=== PATIENT | female | born 1955 | race Caucasian/White ===

== ENCOUNTER → 2017-02-10 | Outpatient (CLI) | payer BC ==
[~2017-02-10] MED LIST: ANAS1TAB19 PO; CALCTAB7 PO; CHOL100010 PO; LISI-729 PO; MELA3TAB PO; MULT-513 PO
== END | disposition home or self-care (01) ==
LOC: C.PAPS 12:01
PROVIDERS: ATTEND Obstetrics & Gynecology
DX: Z01.419 Encounter for gynecological examination (general) (routine) without abnormal findings (principal)

== ENCOUNTER → 2017-07-01 | Outpatient (CLI) | payer BC ==
[2017-07-01 12:09] LABS: BASO % 0.4 %; BASO ABS # 0.03 K/uL (0-0.2); EOS % 0.7 %; EOS ABS # 0.05 K/uL (0-0.5); HEMATOCRIT 43.8 % (37-47); HEMOGLOBIN 15.2 g/dL (12.0-16.0); IG# 0.01 K/uL (0.00-0.02); LYMPH % 17.4 %; LYMPH ABS # 1.22 K/uL (1.2-3.4); MEAN CELL VOLUME 95.6 fL (80-100); MEAN CORPUSCULAR HEMOGLOBIN 33.2 pg (25-34); MEAN CORPUSCULAR HGB CONC 34.7 g/dl (32-36); MEAN PLATELET VOLUME 9.5 fL (7.4-10.4); MONO % 7.5 %; MONO ABS # 0.53 K/uL (0.11-0.59); NEUT % 73.9 %; NEUT ABS # 5.19 K/uL (1.4-6.5); PLATELET COUNT 262 K/uL (130-400); RED CELL DISTRIBUTION WIDTH SD 45.5 fL (36.4-46.3); WHITE BLOOD COUNT 7.03 K/uL (4.8-10.8)
[2017-07-01 12:34] LABS: BLOOD UREA NITROGEN 17 mg/dl (7-18); CALCIUM 9.1 mg/dl (8.5-10.1); CARBON DIOXIDE 31 mmol/L (21-32); CHOLESTEROL 203 mg/dl (0-200); CREATININE 0.56 mg/dl (0.60-1.20); GLUCOSE 88 mg/dl (70-99); SODIUM 138 mmol/L (136-145)
[2017-07-01 12:44] LABS: LDL CHOLESTEROL CALCULATED 113 mg/dl
== END | disposition home or self-care (01) ==
LOC: C.LAB 10:11
PROVIDERS: ATTEND Internal Medicine
DX: M85.80 Other specified disorders of bone density and structure, unspecified site (principal); I10 Essential (primary) hypertension; C50.919 Malignant neoplasm of unspecified site of unspecified female breast

== ENCOUNTER → 2017-08-30 | Day surgery (SDC) | payer BC ==
[2017-08-14 11:35] VITALS: Ht 177.8 cm; Wt 65.0 kg
[~2017-08-30] VITALS: Ht 177.8 cm; Wt 65.0 kg
[~2017-08-30] MED LIST changes: -ANAS1TAB19 PO; +CALC1CHW71 PO; -CALCTAB7 PO; -CHOL100010 PO; +LIDOCAINE HCL 2% 2 ML VIAL (20MG/ML) ONE; -MELA3TAB PO; +MULT-506 PO; -MULT-513 PO; +PROPOFOL IV EMULSION 10 MG/ML 20 ML VIAL IV ONE; +SODIUM CHLORIDE 0.9% 500ML 500 ML IV ONE
--- NOTE | 2017-08-30 11:25 | Endo History and Physical ---
History & Physical Date of Service: Aug 30, 2017. Chief Complaint: screening Referring Physician: Dr. Marion History of Present Illness 62 yo CF who presents for screening colonoscopy. Past Surgical History Hx Cardiac Surgery: No Hx Internal Defibrillator: No Hx Pacemaker: No Hx Abdominal Surgery: Yes (RT OVARIAN CYST REMOVAL, EXPLOR. LAP (INFERTILITY)) Hx of Implantable Prosthesis: No Hx Post-Op Nausea and Vomiting: No Hx Cancer Surgery: Yes (RT MASTECTOMY/RECONSTRUCTION) Hx Thoracic Surgery: No Hx Orthopedic: Yes (LUMBAR MICRODISCECTOMY, LEFT SHOULDER ARTHROSCOPY) Hx Urinary Tract Surgery: No Family History None Social History Smoking Status: Never Smoker Hx Substance Use: No Hx Alcohol Use: Yes (1 GLASS OF WINE/DAILY) Allergies Coded Allergies: Iodinated Diagnostic Agents (Verified Allergy, Unknown, HIVES, 08/30/17) Sulfamethoxazole w/Trimethoprim (Verified Allergy, Unknown, RASH, 08/30/17) Current Medications Reported Home Medications Medications Dose Route/Sig Max Daily Dose Days Date Category Calcium Chews (Calcium Carbonate-Cholecalcife) 1 Chw Chw 1 Tab PO BID 08/14/17 Reported Multivitamin (Multivitamins) Tab 1 Tab PO QAM 08/14/17 Reported Zestril (Lisinopril) 5 Mg Tab 5 Mg PO QAM 08/14/17 Reported Vital Signs Weight (Kilograms): 65 Height (Feet): 5 Height (Inches): 10 Date Time Temp Pulse Resp B/P (MAP) Pulse Ox O2 Delivery O2 Flow Rate FiO2 08/30/17 10:42 36.8 68 18 173/85 (114) 99 Room Air Physical Exam General Appearance: WD/WN, no apparent distress Respiratory/Chest: Auscultation: breath sounds normal Cardiovascular: Heart Auscultation: RRR Abdomen: Bowel Sounds: normal Inspection & Palpation: soft, non-distended, no tenderness, guarding & rebound Assessment and Plan Assessment: 62 yo CF who presents for screening colonoscopy. Plan: Proceed with colonoscopy.
--- NOTE | 2017-08-30 12:00 | GI REPORT ---
Procedure Date: 08/30/2017 11:14 AM Procedure: Colonoscopy Indications: Screening for colorectal malignant neoplasm Medicines: Monitored Anesthesia Care Complications: No immediate complications. Estimated Blood Loss: Estimated blood loss: none. Procedure: Pre-Anesthesia Assessment: - Prior to the procedure, a History and Physical was performed, and patient medications and allergies were reviewed. The patient's tolerance of previous anesthesia was also reviewed. The risks and benefits of the procedure and the sedation options and risks were discussed with the patient. All questions were answered, and informed consent was obtained. Prior Anticoagulants: The patient has taken no previous anticoagulant or antiplatelet agents. ASA Grade Assessment: II - A patient with mild systemic disease. After reviewing the risks and benefits, the patient was deemed in satisfactory condition to undergo the procedure. After I obtained informed consent, the scope was passed under direct vision. Throughout the procedure, the patient's blood pressure, pulse, and oxygen saturations were monitored continuously. The scope was introduced through the anus and advanced to the terminal ileum. The colonoscopy was performed without difficulty. The patient tolerated the procedure well. The quality of the bowel preparation was good. The terminal ileum, ileocecal valve, appendiceal orifice, and rectum were photographed. Findings: The perianal and digital rectal examinations were normal. Non-bleeding internal hemorrhoids were found during retroflexion. The hemorrhoids were small. Impression: - Non-bleeding internal hemorrhoids. - No specimens collected. Recommendation: - Resume previous diet. - Continue present medications. - Repeat colonoscopy in 10 years for surveillance. - Return to primary care physician as previously scheduled. Frank Farias DO 08/30/2017 11:59:38 AM This report has been signed electronically. Note Initiated On: 08/30/2017 11:14 AM I attest to the content of the Intraoperative Record and orders documented therein, exceptions below
--- NOTE | 2017-08-30 12:01 | Discharge Instructions ---
Endoscopy Patient Instructions Date / Procedure(s) Performed Aug 30, 2017. Colonoscopy Allergy Information Coded Allergies: Iodinated Diagnostic Agents (Verified Allergy, Unknown, HIVES, 08/30/17) Sulfamethoxazole w/Trimethoprim (Verified Allergy, Unknown, RASH, 08/30/17) Discharge Date / Findings Aug 30, 2017. Internal hemorrhoids Medication Instructions OK to resume all medications today as prescribed Reported Home Medications Medications Dose Route/Sig Max Daily Dose Days Date Category Calcium Chews (Calcium Carbonate-Cholecalcife) 1 Chw Chw 1 Tab PO BID 08/14/17 Reported Multivitamin (Multivitamins) Tab 1 Tab PO QAM 08/14/17 Reported Zestril (Lisinopril) 5 Mg Tab 5 Mg PO QAM 08/14/17 Reported Provider Instructions Activity Restrictions - No exercising or heavy lifting for 24 hours. - Do not drink alcohol the day of the procedure. - Do not drive a car or operate machinery until the day after the procedure. - Do not make any important decisions or sign important papers in 24 hours after the procedure. Following Day: - Return to full activity which may include returning to work/school. Diet Start your diet with liquids and light foods (jello, soup, juice, toast). Then eat your usual diet if not nauseated. Treatment For Common After Affects For mild abdominal pain, bloating, or excessive gas: - Rest - Eat lightly - Lie on right side Follow-Up Information Follow-up with Dr. Marion as scheduled Anesthesia Information What You Should Know You have had a procedure that required some medicine to reduce anxiety and discomfort. This treatment is called moderate sedation. After receiving the treatment, you may be sleepy, but you will be able to breathe on your own. The effects of the treatment may last for several hours. Follow these instructions along with Activity/Diet recommendations noted above: * Do NOT do anything where dizziness or clumsiness would be dangerous. * Rest quietly at home today, then you can be up and about tomorrow. * Have a responsible person stay with you the rest of today. * You may have had an I.V. today. If so, you may take the dressing off later today. Recommendations Call your doctor if: * Trouble breathing * Continuous vomiting for more than 24 hours * Temperature above 101 degrees * Severe abdominal pain or bloating * Pain not relieved by pain medicine ordered * There is increased drainage or redness from any incision * A large amount of rectal bleeding greater than 2-3 tablespoons. (If you had a polyp/s removed or have hemorrhoids, a small amount of blood - from the rectum is to be expected.) * You have any unanswered questions or concerns. IN THE EVENT OF A SERIOUS EMERGENCY, GO TO THE NEAREST EMERGENCY ROOM Your discharge instructions were prepared by provider Frank Farias. Patient Instructions Signature Page Fannie Aguilar Patient (or Guardian) Signature/Date: I have read and understand the instructions given to me by my caregivers. Caregiver/RN/Doctor Signature/Date: The above-named patient and/or guardian has received patient instructions on this date. + Original Patient Signature Page (only) stays with chart. Please make copy for patient.
--- NOTE | 2017-08-30 12:27 | Anesthesiology Progress Note ---
Anesthesia Post Op Note Date & Time Aug 30, 2017 at 12:27 Vital Signs Pain Intensity: 0 Vital Signs Past 12 Hours Date Time Temp Pulse Resp B/P (MAP) Pulse Ox O2 Delivery O2 Flow Rate FiO2 08/30/17 12:20 69 20 140/71 (94) 100 Room Air 08/30/17 12:05 37.0 69 16 113/59 (77) 98 Room Air 08/30/17 10:42 36.8 68 18 173/85 (114) 99 Room Air Notes Mental Status: alert / awake / arousable, participated in evaluation Pt Amnestic to Procedure: Yes Nausea / Vomiting: adequately controlled Pain: adequately controlled Airway Patency, RR, SpO2: stable & adequate BP & HR: stable & adequate Hydration State: stable & adequate Anesthetic Complications: no major complications apparent
[2017-08-30 12:35] VITALS: BP 137/84; PULSE 67; O2SAT 99
== END | disposition home or self-care (01) ==
LOC: C.GI 10:17
PROVIDERS: ATTEND Internal Medicine
DX: Z12.11 Encounter for screening for malignant neoplasm of colon (principal); K64.9 Unspecified hemorrhoids; I10 Essential (primary) hypertension; Z88.2 Allergy status to sulfonamides; Z88.8 Allergy status to other drugs, medicaments and biological substances; Z98.890 Other specified postprocedural states; Z90.11 Acquired absence of right breast and nipple; Z79.899 Other long term (current) drug therapy; Z85.3 Personal history of malignant neoplasm of breast

== ENCOUNTER 2019-10-09 05:45 | Inpatient (IN) ==
--- NOTE | 2019-10-02 11:28 | History & Physical Report ---
Date of Service October 02, 2019 Assessment & Plan (1) Cervical stenosis of spinal canal: At this time the patient's had a steady decline in status and noting weakness and pain. Subsequently recommending urgent anterior cervical discectomy and fusion C5-6 and C6-7 in hopes of relieving her pain and halting the progression of strength deficits. Hopefully this will avoid permanent neurologic sequelae. Risk benefits pros cons and alternatives were outlined in detail. Present on Admission?: Yes History of Present Illness Chief Complaint: Neck with bilateral arm pain and weakness. Primary Care Provider: Jesse Marion MD This is a 64-year-old female that presents with progressive neck pain headaches and arm pain with worsening weakness involving the left upper extremity. He is failed extensive course of nonoperative care. She notes deficits with hand strength and triceps particular on the left. Allergies Allergy/AdvReac Type Severity Reaction Status Date / Time strawberry Allergy Severe rash and Verified 07/30/19 08:35 sob Iodinated Contrast Media Allergy Intermediate HIVES Verified 07/30/19 08:35 sulfamethoxazole Allergy Mild RASH Verified 07/30/19 08:35 trimethoprim Allergy Mild RASH Verified 07/30/19 08:35 Bactrim Allergy Unknown RASH Verified 08/30/17 10:35 Home Medications Home Medications Medication Instructions Recorded Confirmed Type multivitamin 1 tab PO QAM 07/13/18 07/30/19 History hydrochlorothiazide 25 mg tablet 25 mg PO DAILY PRN #90 tab 12/19/18 07/30/19 Rx calcium carbonate 500 mg(1,250 1 tab PO BID tab 12/31/18 07/30/19 History mg)-vitamin D3 400 unit chewable tablet cholecalciferol (vitamin D3) 25 1,000 units PO DAILY cap 12/31/18 07/30/19 History mcg (1,000 unit) capsule fluticasone propionate 50 1 - 2 sprays INTRANASAL DAILY PRN 12/31/18 07/30/19 History mcg/actuation nasal #3 gm spray,suspension melatonin 3 mg capsule 3 mg PO HS PRN 01/03/19 07/30/19 History metoprolol succinate 50 mg 25 mg PO QAM tab 06/20/19 07/30/19 History tablet,extended release 24 hr tizanidine 2 mg capsule 2 mg PO QPM PRN cap 06/20/19 07/30/19 History rivaroxaban 20 mg tablet 20 mg PO DAILY #90 tab 09/15/19 Rx lisinopril 10 mg tablet 20 mg PO QAM #180 tab 09/23/19 Rx Past Med/Surg History Medical History (Updated 10/02/19 @ 11:28 by Rcihard Alicea, DO) Atrial fibrillation dx'd November 2018. converted to NSR on her own, follows with Dr Slade. Xarelto & metoprolol daily Dog bite (Inactive) History of right breast cancer (~2005) s/p mastectomy + chemo- no current issues Hypertension Kidney stones no surgery needed- no current issues Surgical History History of arthroscopy of shoulder left History of back surgery History of cataract surgery bilateral History of colonoscopy History of exploratory laparotomy History of ovarian cystectomy History of reconstruction of right breast History of right breast biopsy History of right mastectomy with sentinel node biopsy S/P epidural steroid injection Social History Preferred Language: [place]ian Communication Ability: Effective Scallop Cutter Required: No Beliefs That Will Affect Care: None Current Living Situation: Spouse Feels Safe at Home: Yes Smoking Status: Never smoker Second Hand Exposure: No ; Hx Alcohol Use: Yes Alcohol type: wine Hx Substance Use: No Physical Exam Physical Exam: Patient is alert and oriented On exam she is in obvious distress. She is significant Spurling signs bilaterally. She has deficits for 5 to the left tricep compared to the right. She has weakness to left grasp as well. Sensory appears to be symmetric and intact. Deep tendon reflexes are diminished. Heart is regular rate and rhythm Lungs clear to auscultation Results & Data Diagnostic Findings MRI of the cervical spine demonstrates evidence of cervical lordosis with marked degenerative change at the C5-6 and C6-7 levels. I do not appreciate intrinsic cord change. There is significant neural foraminal disease most impressive at C5-C6. X-ray views confirm disc osteophyte complex central canal stenosis C5-C6 with severe bilateral neuroforaminal disease. Lesser degree C6-C7.
--- NOTE | 2019-10-07 15:59 | Anesthesiology Consultation ---
Date of Service October 07, 2019 Assessment & Plan (1) Encounter for pre-operative examination: Pre-op labs out of date (patient was r/s due to COVID19). CBC, BMP, PT/INR/PTT AM DOS. COVID Status: As of 10/02 nurse assessment, patient denies travel outside of [facility], known exposure/sick contacts, symptoms, or testing for coronavirus. ORDERS ALREADY DONE AND IN CHART Chart Review Chart Review: Acceptable Risk for Surgery (pending discussion with MD) and Patient NOT seen in Pre Admission Testing History Surgery Operation Date: 10/09/19 07:30 Proposed Procedures p C5-C7 Anterior Cervical Discectomy Fusion, Spinal Cord Monitoring - Richard Alicea, Height/Weight Height: 5 ft 10 in Weight: 65.771 kg Allergies Allergy/AdvReac Type Severity Reaction Status Date / Time strawberry Allergy Severe rash and Verified 10/03/19 13:06 sob Iodinated Contrast Media Allergy Intermediate HIVES Verified 10/03/19 13:06 sulfamethoxazole Allergy Mild RASH Verified 10/03/19 13:06 trimethoprim Allergy Mild RASH Verified 10/03/19 13:06 Bactrim Allergy Unknown RASH Verified 08/30/17 10:35 Medications Home Medications Medication Instructions Recorded Confirmed Last Taken multivitamin 1 tab PO QAM 07/13/18 10/03/19 12/12/18 hydrochlorothiazide 25 mg tablet 25 mg PO DAILY PRN #90 tab 12/19/18 10/03/19 Unknown calcium carbonate 500 mg(1,250 1 tab PO BID tab 12/31/18 10/03/19 Unknown mg)-vitamin D3 400 unit chewable tablet cholecalciferol (vitamin D3) 25 1,000 units PO QAM cap 12/31/18 10/03/19 Unknown mcg (1,000 unit) capsule fluticasone propionate 50 1 - 2 sprays INTRANASAL DAILY PRN 12/31/18 10/03/19 Unknown mcg/actuation nasal #3 gm spray,suspension melatonin 3 mg capsule 3 mg PO HS PRN 01/03/19 10/03/19 Unknown metoprolol succinate 50 mg 25 mg PO QAM tab 06/20/19 10/03/19 Unknown tablet,extended release 24 hr tizanidine 2 mg capsule 2 mg PO QPM PRN cap 06/20/19 10/03/19 Unknown lisinopril 10 mg tablet 20 mg PO QAM #180 tab 09/23/19 10/03/19 Unknown rivaroxaban [Xarelto] 20 mg PO QAM 10/03/19 10/03/19 Unknown Past Medical History Medical History Atrial fibrillation dx'd November 2018. converted to NSR on her own, follows with Dr Slade. Xarelto & metoprolol daily History of right breast cancer (~2005) s/p mastectomy + chemo- no current issues Hypertension Kidney stones no surgery needed- no current issues Past Family History Family History Father Family history of diabetes mellitus Hx of CABG Hypertension Brother Type 2 diabetes mellitus Hypertension Grandmother Breast cancer Other No family history of adverse response to anesthesia Renal cell carcinoma Past Surgical History Surgical History History of arthroscopy of shoulder left History of back surgery History of cataract surgery bilateral History of colonoscopy History of exploratory laparotomy History of ovarian cystectomy History of reconstruction of right breast History of right breast biopsy History of right mastectomy with sentinel node biopsy S/P epidural steroid injection Social History Smoking Status: Never smoker Do You Dip or Chew Tobacco: No Hx Alcohol Use: Yes Alcohol type: wine alcohol intake frequency: 0-2 drinks per day Hx Substance Use: No substance use type: does not use Testing Electrocardiogram Date: 07/29/19 Findings: + SB @ (59bpm) Otherwise normal EKG. Compared to EKG of 12/13/18, SR has replaced afib, vent. rate has decreased by 82bpm, ST no longer depressed in inferior leads. Chest X-Ray Date: 12/13/18 Stress Test Date: 06/17/14 Type: exercise Resting EF: 60% Resting LV Function: normal Resting RWMA: + none Valvular Disease: no significant valvular disease Negative exercise stress ECHO for ischemia at 95%MPHR. Negative exercise stress EKG for ischemia at 95% MPHR.
[2019-10-09] MEDS ORDERED: CEFAZOLIN 1000MG 1,000 MG/7.5 ML SYR IV SCH (06:00)
[2019-10-09] MEDS ORDERED: GABAPENTIN 600 MG DOSE PO SCH (06:00)
[2019-10-09] MEDS ORDERED: ACETAMINOPHEN 500 MG TAB PO SCH (06:00)
[2019-10-09] MEDS ORDERED: LR 15ML/HR IV SCH (06:00)
[2019-10-09 06:18] LABS: Hematocrit (blood only) 43.6 % (37-47); Hemoglobin 15.1 g/dL (12.0-16.0); Mean Corpuscular Hemoglobin 33.4 pg (25-34); Mean Corpuscular Volume 96.5 fL (80-100); Mean Platelet Volume 9.2 fL (7.4-10.4); Platelet Count 256 K/uL (130-400); RDW Coefficient of Variation 13.2 % (11.5-14.5); RDW Standard Deviation 45.5 fL (36.4-46.3); Red Blood Count 4.52 M/uL (4.2-5.4); White Blood Count 7.65 K/uL (4.8-10.8)
[2019-10-09 06:21] LABS: Mean Corpuscular Hgb Conc 34.6 g/dL (32-36)
[2019-10-09 06:35] LABS: INR 1.1 (0.9-1.1); Partial Thromboplastin Time 29.1 Seconds (21.0-31.0); Prothrombin Time 11.2 Seconds (9.0-12.0)
[2019-10-09 06:42] LABS: BUN Creatinine Ratio 25.5 (10-20); Calcium 8.7 mg/dl (8.5-10.1); Creatinine Clr Calc Pharmacy 86.7 ml/min; Est GFR (Non-African American) 89.8; Potassium 4.1 mmol/L (3.5-5.1)
[2019-10-09] MEDS ORDERED: ePHEDrine sulfate 50 MG/ML AMP IV PRN (07:00)
[2019-10-09] MEDS ORDERED: ATROPINE SULFATE 0.1 MG/ML 10ML SYR IV PRN (07:00)
[2019-10-09] MEDS ORDERED: ONDANSETRON INJ 2 MG/ML 2 ML VIAL IV PRN ×2 (07:00→11:35)
[2019-10-09] MEDS ORDERED: fentaNYL citrate 100 MCG/2 ML VIAL IV PRN (07:00)
[2019-10-09] MEDS ORDERED: DEXAMETHASONE SOD INJ 4 MG/ML VIAL ONE (07:07)
[2019-10-09] MEDS ORDERED: fentaNYL citrate 100 MCG/2 ML VIAL ONE ×2 (07:07→09:39)
[2019-10-09] MEDS ORDERED: PROPOFOL IV EMULSION 10 MG/ML 20 ML VIAL IV ONE (07:07)
[2019-10-09] MEDS ORDERED: MIDAZOLAM HCL 1 MG/ML 2ML VIAL ONE (07:07)
[2019-10-09] MEDS ORDERED: NEOSTIGMINE METHYLSULFATE 5 MG/5 ML SYR ONE (07:07)
[2019-10-09] MEDS ORDERED: GLYCOPYRROLATE 0.2 MG/ML VIAL ONE ×2 (07:07→09:26)
[2019-10-09] MEDS ORDERED: BACITRACIN INJ 50,000 UNIT VIAL ONE (07:07)
[2019-10-09] MEDS ORDERED: LIDOCAINE HCL 2% 2 ML VIAL/AMP(20MG/ML) INFIL ONE (07:07)
[2019-10-09] MEDS ORDERED: ONDANSETRON INJ 2 MG/ML 2 ML VIAL ONE ×2 (07:07→09:10)
--- NOTE | 2019-10-09 07:19 | History & Physical Bridge Note ---
Date of Service October 09, 2019 History & Physical Bridge Note I have examined the patient, reviewed the History & Physical and in the interval since the performance of the History & Physical I have noted the following changes of clinical significance: no changes noted
[2019-10-09] MEDS ORDERED: HYDROmorphone INJ 2 MG/ML SYR/VIAL ONE (08:09)
[2019-10-09] MEDS ORDERED: ePHEDrine sulfate 50 MG/ML SYR ONE (08:31)
[2019-10-09] MEDS ORDERED: FLOSEAL HEMOSTATIC MATRIX 10ML TOP ONE (08:53)
[2019-10-09] MEDS ORDERED: ROCURONIUM BROMIDE 10 MG/ML 5 ML VIAL ONE (09:10)
[2019-10-09] MEDS ORDERED: SUCCINYLCHOLINE CHLORIDE 20 MG/ML 10 ML VIAL ONE (09:10)
--- NOTE | 2019-10-09 09:17 | Operative Report ---
Post Operative Report Pre & Post Diagnosis Operation Date: 10/09/19 07:30 Pre-Op Diagnosis: Spinal Stenosis, Cervical Region Post-Op Diagnosis: Spinal Stenosis, Cervical Region I identified the patient and participated in the time-out.: Yes Procedure Operation Date: 10/09/19 07:30 Actual Procedures #1 anterior cervical discectomy with bilateral foraminotomies C5-6 and C6-7. #2 anterior cervical arthrodesis C5-6 and C6-7. #3 placement of titanium 7 mm cage filled with DBM at C5-6 and C6-7. #4 application of 5 complete screws across C5-6 and C6-7. Surgeon Richard Alicea, DO Clinical Research Administrator Monica Espitia Estimated Blood Loss 10 Findings Consistent with Post-Op Diagnosis Specimens None Indications This is a 64-year-old female well-known to me the presents with above-mentioned diagnosis after failing extensive course of nonoperative care is here for the above-mentioned procedure. Description of Procedure Patient was met with identified informed consent obtained. Patient was then taken to the operative suite underwent intubation placed in the supine position on the Grey table with head Goodman head of english. All bony prominences well- padded eyes inspected to ensure no external pressure placed upon the. This point the anterior cervical spine was prepped and draped in normal sterile fashion. Sharp dissection with the assistance of bipolar electrocautery was performed down to and exposing the anterior cervical spine from C5-C7. Self- retaining retractors placed. Then performed a complete discectomy of C5-6 out to the uncovertebral joints bilaterally. [place] distracting pins were utilized to assist in visualization. Removed all posterior annular fibers longitudinal ligament bilateral foraminotomies performed. Endplates were then burred to subcortical bleeding bone and a 7 mm Spira cage filled with DBM tapped in position. Then proceeded to C6-7 again complete discectomy performed out to the uncovertebral joints bilaterally. [place] distracting pins again utilized. I did remove all posterior annular fibers longitudinal ligament and bilateral foraminotomies performed. Endplates were then burred to sub-cortical bleeding bone and again a 7 mm Spira cage filled with DBM tapped in position. Distracting apparatus was removed. All anterior osteophytes burred to a smooth cortical surface and a 5 complete screws applied with the assistance of fluoroscopy. Incision was then copiously irrigated explored to ensure no damage to surrounding structures remaining bleeding. 10 round ELI drain inserted. Incision was then closed with 2 Vicryl in a fashion of 4 Monocryl for final skin closure. Steri-Strip sterile dressings placed. Patient will continue PACU stable disc. Please note spinal cord monitoring was utilized procedure no changes noted. I attest to the content of the Intraoperative Record and any orders documented therein. Any exceptions are noted below.
--- NOTE | 2019-10-09 09:46 | Fluoroscopy Report ---
FL cervical 2-3V CLINICAL HISTORY: 64 years-old Female presenting with ACDF C5-C7. TECHNIQUE: 2 fluoroscopic image(s) recorded as part of an intraoperative procedure. COMPARISON: MR from 06/19/2019. FINDINGS/IMPRESSION: Anterior cervical discectomy and fusion of C5-C7. Normal anatomic alignment. Endotracheal tube and garrido rgical sponge noted in the anterior soft tissues of the neck. The surgical sponges not present on the last recorded image. Surgical drain in place. Please see surgical report for further details. Fluoroscopy dosage (mGy): 0.72. Fluoroscopy time: 10.6 seconds. Number or time of high level fluoroscopy (HLF), digital spot, or digital subtraction images: 0. ACT 112: Negative or not required by law. Electronically signed by: Adrien Caro M.D. 10/09/2019 9:45 AM
[2019-10-09] MEDS: HYDROmorphone INJ 2 MG/ML SYR/VIAL IV PRN ×4 (09:56→10:11)
[2019-10-09] MEDS ORDERED: RACEPINEPHRINE 2.25% NEBU SOLN 0.5 ML VIAL INH PRN (11:35)
[2019-10-09] MEDS ORDERED: HYDROmorphone INJ 1 MG/ML SYRINGE IV PRN (11:35)
[2019-10-09] MEDS ORDERED: FAMOTIDINE 20 MG TAB PO PRN (11:35)
[2019-10-09] MEDS ORDERED: ACETAMINOPHEN 500 MG TAB PO PRN (11:35)
[2019-10-09] MEDS ORDERED: PROMETHAZINE HCL 12.5 MG in SODIUM CHLORIDE 0.9% 50 ML IV PRN (11:35)
[2019-10-09] MEDS ORDERED: ALUMINUM/MAGNESIUM SUSP 30 ML UDC PO PRN (11:35)
[2019-10-09] MEDS ORDERED: METOCLOPRAMIDE HCL INJ 5 MG/ML 2 ML VIAL IV PRN (11:35)
[2019-10-09] MEDS ORDERED: NALOXONE HCL 0.4 MG/1 ML VIAL/CARP IV PRN (11:35)
[2019-10-09] MEDS ORDERED: HYDROmorphone INJ 0.5 MG/0.5 ML SYR IV PRN (11:35)
[2019-10-09] MEDS ORDERED: ONDANSETRON 4 MG OD TAB PO PRN (11:35)
[2019-10-09] MEDS ORDERED: DO NOT ADMINISTER PNEUMOCOCCAL VACCINE PRN (11:35)
[2019-10-09] MEDS ORDERED: TRAMADOL HCL 50 MG TABLET PO PRN (11:35)
[2019-10-09] MEDS ORDERED: LORazepam 0.5 MG/1 ML VIAL IV PRN (11:35)
[2019-10-09] MEDS ORDERED: TIZANIDINE HCL 4 MG TABLET PO PRN (11:35)
[2019-10-09] MEDS ORDERED: ACETAMINOPHEN 1,000 MG/100 ML VIAL IV PRN (11:35)
[2019-10-09] MEDS ORDERED: SOD PHOSPHATE/SOD BIPHOSPHATE ENEMA 132 ML BTL PR PRN (11:35)
[2019-10-09] MEDS ORDERED: DO NOT ADMINISTER FLU VACCINE PRN (11:35)
[2019-10-09] MEDS ORDERED: LORazepam 0.5 MG TAB PO PRN (11:35)
[2019-10-09] MEDS ORDERED: DEXAMETHASONE SOD PHOSPHATE 8 MG in SYRINGE 0 ML IV PRN (11:35)
[2019-10-09] MEDS ORDERED: MAGNESIUM HYDROXIDE SUSP 30 ML UDC PO PRN (11:35)
[2019-10-09] MEDS ORDERED: hydroCHLOROthiazide 25 MG TAB PO PRN (11:35)
[2019-10-09] MEDS: LACTATED RINGER'S 1,000 ML IV SCH ×2 (12:17→21:50)
[2019-10-09] MEDS: OXYCODONE HCL IR 5 MG TAB (IMMEDIATE RELEASE) PO PRN ×3 (14:18→22:28)
[2019-10-09] MEDS: CEFAZOLIN 1000MG 1,000 MG/7.5 ML SYR IV SCH ×2 (14:18→22:28)
--- NOTE | 2019-10-09 15:29 | Anesthesiology Progress Note ---
Date of Service October 09, 2019 Anesthesia Post Procedure Vital Signs Vital Signs: Temp Pulse Pulse Pulse Resp BP Pulse Ox 10/09/19 14:14 36.4 C L 88 18 143/76 H 96 10/09/19 13:15 36.8 C 101 H 20 157/76 H 96 10/09/19 13:00 102 H 16 97 10/09/19 12:15 36.8 C 92 H 16 150/69 H 98 10/09/19 11:54 10/09/19 11:43 36.5 C 89 16 155/71 H 99 10/09/19 11:00 62 12 128/72 98 10/09/19 10:45 58 L 12 123/74 99 10/09/19 10:30 36.6 C 58 L 13 132/81 100 10/09/19 10:20 68 18 151/72 H 100 10/09/19 10:10 54 L 18 126/66 100 10/09/19 10:00 59 L 17 137/77 100 10/09/19 09:51 36 C L 85 15 157/76 H 100 10/09/19 06:12 36.5 C 62 20 143/74 H 100 Pulse Ox 10/09/19 14:14 10/09/19 13:15 10/09/19 13:00 10/09/19 12:15 10/09/19 11:54 98 10/09/19 11:43 10/09/19 11:00 10/09/19 10:45 10/09/19 10:30 10/09/19 10:20 10/09/19 10:10 10/09/19 10:00 10/09/19 09:51 10/09/19 06:12 Pain Intensity Neck: Pain Intensity: 2 Transfer of Care Handoff Completed per policy Notes Mental Status: alert / awake / arousable and participated in evaluation Patient Amnestic to Procedure: Yes Nausea / Vomiting: adequately controlled Pain: adequately controlled Airway Patency, RR, SpO2: stable & adequate BP & HR: stable & adequate Hydration State: stable & adequate Anesthetic Complications: no major complications apparent and Pt Satisfied with anesthetic care
[2019-10-09] MEDS ORDERED: COUGH DROP (SUGAR FREE) LOZ 24 LOZ/1 BOX BUCCAL ONE (18:30)
[2019-10-09] MEDS: CALCIUM 600MG + VIT D 400 IU TAB PO SCH (20:46)
[2019-10-09] MEDS ORDERED: DOCUSATE SODIUM/SENNA 50/8.6MG TAB PO SCH (21:00)
[2019-10-10] MEDS: OXYCODONE HCL IR 5 MG TAB (IMMEDIATE RELEASE) PO PRN (02:15)
--- NOTE | 2019-10-10 07:42 | Anesthesiology Progress Note ---
Date of Service October 10, 2019 Anesthesia Post Procedure Vital Signs Vital Signs: Temp Pulse Pulse Pulse Resp BP Pulse Ox 10/10/19 07:19 73 16 96 10/10/19 06:05 36.6 C 84 16 156/80 H 98 10/10/19 04:05 36.6 C 60 16 151/72 H 100 10/10/19 03:18 74 16 100 10/10/19 02:08 36.5 C 100 H 17 147/87 H 100 10/09/19 22:53 57 L 14 97 10/09/19 22:22 36.5 C 65 16 120/63 98 10/09/19 20:15 36.6 C 78 16 134/66 96 10/09/19 20:00 80 18 95 10/09/19 18:15 36.9 C 76 16 118/53 L 92 10/09/19 16:15 36.6 C 80 16 140/69 96 10/09/19 15:30 93 H 18 97 10/09/19 14:14 36.4 C L 88 18 143/76 H 96 10/09/19 13:15 36.8 C 101 H 20 157/76 H 96 10/09/19 13:00 102 H 16 97 10/09/19 12:15 36.8 C 92 H 16 150/69 H 98 10/09/19 11:54 10/09/19 11:43 36.5 C 89 16 155/71 H 99 10/09/19 11:00 62 12 128/72 98 10/09/19 10:45 58 L 12 123/74 99 10/09/19 10:30 36.6 C 58 L 13 132/81 100 10/09/19 10:20 68 18 151/72 H 100 10/09/19 10:10 54 L 18 126/66 100 10/09/19 10:00 59 L 17 137/77 100 10/09/19 09:51 36 C L 85 15 157/76 H 100 Pulse Ox Pulse Ox 10/10/19 07:19 10/10/19 06:05 10/10/19 04:05 10/10/19 03:18 10/10/19 02:08 10/09/19 22:53 10/09/19 22:22 10/09/19 20:15 10/09/19 20:00 95 10/09/19 18:15 10/09/19 16:15 10/09/19 15:30 10/09/19 14:14 10/09/19 13:15 10/09/19 13:00 10/09/19 12:15 10/09/19 11:54 98 10/09/19 11:43 10/09/19 11:00 10/09/19 10:45 10/09/19 10:30 10/09/19 10:20 10/09/19 10:10 10/09/19 10:00 10/09/19 09:51 Pain Intensity Neck: Pain Intensity: 2 Transfer of Care Handoff Completed per policy Notes Mental Status: alert / awake / arousable Nausea / Vomiting: adequately controlled Pain: adequately controlled Airway Patency, RR, SpO2: stable & adequate BP & HR: stable & adequate Hydration State: stable & adequate Anesthetic Complications: no major complications apparent and Pt Satisfied with anesthetic care
[2019-10-10] MEDS: CALCIUM 600MG + VIT D 400 IU TAB PO SCH (08:48)
[2019-10-10] MEDS ORDERED: lisinopriL 20 MG TAB PO SCH (09:00)
[2019-10-10] MEDS ORDERED: CHOLECALCIFEROL 1,000 UNITS 25 MCG TAB PO SCH (09:00)
[2019-10-10] MEDS ORDERED: MULTIVITAMIN TAB PO SCH (09:00)
[2019-10-10] MEDS ORDERED: METOPROLOL SUCC 25MG EXT REL TAB PO SCH (09:00)
--- NOTE | 2019-10-10 09:01 | Orthopedic Progress Note ---
Date of Service October 10, 2019 Assessment & Plan (1) Cervical stenosis of spinal canal: This time will be to discontinue drain discharge home discharge orders instructions from the chart for further review. Present on Admission?: Yes Admission and Anticipated Discharge Date Admission Date: October 09, 2019 Subjective Neck pain controlled swallowing well no hoarseness. Arm symptoms improved. Physical Exam Physical Exam: Patient is good strength testing appears comfortable. Results & Data ([facility]) Vital Signs (Past 12 Hours) Vital Signs Temp Pulse Pulse Resp BP Pulse Ox 10/10/19 08:13 36.5 C 74 18 146/69 H 99 10/10/19 07:19 73 16 96 10/10/19 06:05 36.6 C 84 16 156/80 H 98 10/10/19 04:05 36.6 C 60 16 151/72 H 100 10/10/19 03:18 74 16 100 10/10/19 02:08 36.5 C 100 H 17 147/87 H 100 10/09/19 22:53 57 L 14 97 10/09/19 22:22 36.5 C 65 16 120/63 98
--- NOTE | 2019-10-10 09:02 | Discharge Summary ---
Date of Service October 10, 2019 Admission HPI Per Admitting Provider This is a 64-year-old female that presents with progressive neck pain headaches and arm pain with worsening weakness involving the left upper extremity. He is failed extensive course of nonoperative care. She notes deficits with hand strength and triceps particular on the left. Principal Diagnosis Cervical spinal stenosis with radiculopathy Discharge Data Allergies Allergy/AdvReac Type Severity Reaction Status Date / Time strawberry Allergy Severe rash and Verified 10/09/19 06:17 sob Iodinated Contrast Media Allergy Intermediate HIVES Verified 10/09/19 06:17 sulfamethoxazole Allergy Mild RASH Verified 10/09/19 06:17 trimethoprim Allergy Mild RASH Verified 10/09/19 06:17 Bactrim Allergy Unknown RASH Verified 08/30/17 10:35 Procedures Performed Operation Date: 10/09/19 07:30 Actual Procedures p C5-C7 Anterior Cervical Discectomy Fusion, Spinal Cord Monitoring(Not Applicable) - Richard Alicea DO Ordered Studies 10/09/19 07:30 FL cervical 2-3V Routine FL fluoroscopy <1hr Routine Hospital Course (1) Cervical stenosis of spinal canal: Patient underwent anterior cervical discectomy and fusion tolerated this well was taken to orthopedic for possibly. Postop day 1 she was swallowing well no hoarseness. Good strength testing. ELI drain decreasing probably. Subsequently discharged home. Discharge orders and instructions from the chart for further review. Total Time Total Time Spent Total Time Spent (In Minutes): 20 minutes Discharge Plan Discharge Items Patient Disposition: Home - Self-Care Reason For Visit: Spinal Stenosis, Cervical Region Discharge Diagnosis: Cervical spinal stenosis with radiculopathy Activity: As commented below Non-emergency contact: Primary Care Provider Call non-emergency contact if: you have any medication questions Follow-up/Referrals: Jesse Marion MD [Primary Care Provider] - Diet: Regular Addtl Attending Provider Instructions: ACTIVITY RECOMMENDATIONS: SELF CARE INSTRUCTIONS AFTER CERVICAL FUSIONS 1. No smoking. Smoking drastically decreases the chance of a solid fusion. 2. No bending, lifting more than 5 pounds, or twisting (roll like a log when turning in bed). 3. You may shower 3 days after surgery. Thoroughly dry wound. Do not soak in the tub. 4. Cervical collar: Must be worn at all times including sleeping. You may remove the brace only to bath, eat and if you are sitting in a recliner. 5. Please walk as much as you can for exercise. Gradually increase the distance that you walk as your endurance increases. SPECIAL CARE INSTRUCTIONS: VERY IMPORTANT TO READ AND REVIEW A. Do not take any anti-inflammatory medications (i.e. Indocin, Advil, Aspirin, Naprosyn, Aleve, Motrin, etc.) as these may inhibit the chance of a solid fusion. Tylenol is okay to take. B. Your surgical incision has been closed with a cosmetic suture under the skin that will dissolve in about 6 weeks. In 14 days, you can use a pair of clean scissors and cut the suture that is left outside of the skin at the ends of your incision. C. Complications are uncommon, but please contact us if you have any signs or symptoms of: 1. wound infection (fever higher than 102.5 degrees F, redness, separation of wound, drainage, or increasing pain from the incision) 2. blood clots in legs (pain, swelling, redness and warmth in legs) 3. urinary tract infection (fever higher than 102.5 degrees, burning upon urination or increased frequency of urination) 4. nerve problems (inability to walk on your toes or heels, numbness, loss of bowel or bladder control) 5. any other symptoms that concern you. D. Please call the office at if you have any concerns or questions about your operation or recovery. MANAGING PAIN AFTER SPINAL SURGERY 1. Narcotic medication is intended for short-term use and will be provided for surgical pain. Surgical pain usually lasts for a period of 4-6 weeks. Narcotic medication includes Percocet, Vicodin, Darvocet, Tylenol #3 or Lortab. 2. Longer-term pain is more appropriately treated with non-narcotic medication such as Tylenol ES. 3. Muscle spasm is not appropriately treated with narcotics. Muscle relaxers such as Soma, Flexeril or Skelaxin can be used along with Tylenol ES. 4. Remember that we all live with some "aches and pains". This is not unusual or uncommon after an injury or as we get older. 5. We will provide appropriate medication within the normal guidelines of their prescribed use. We will also be very cautious and aware of potential abuse and extended duration of patients' medication needs. 6. Please allow 2-3 days to process refills. Prescriptions will not be mailed but must be picked up at the office. FOLLOW UP VISIT: Keep your scheduled follow-up appointment. Any questions, please call the office at . Pending Studies at Discharge: No Stand-Alone Forms: My [facility], Smoking Cessation Medications and DC Order Prescriptions: New tramadol 50 mg tablet 50 mg PO Q6H PRN (Reason: pain, moderate) Qty: 20 RF: 0 oxycodone 5 mg tablet 5 mg PO Q6H PRN (Reason: pain, severe) Qty: 15 RF: 0 Continued hydrochlorothiazide 25 mg tablet 25 mg PO DAILY PRN (Reason: "BLOATED FEELING" PER PT) Qty: 90 RF: 3 lisinopril 10 mg tablet 20 mg PO QAM Qty: 180 RF: 3 tizanidine 2 mg capsule 2 mg PO QPM PRN (Reason: muscle spasticity) RF: 0 metoprolol succinate 50 mg tablet extended release 24 hr 25 mg PO QAM RF: 0 fluticasone propionate 50 mcg/actuation spray,suspension 1 - 2 sprays intranasal DAILY PRN (Reason: seasonal allergies) Qty: 3 RF: 0 melatonin 3 mg capsule 3 mg PO HS PRN (Reason: Sleep) RF: 0 multivitamin Tablet 1 tab PO QAM RF: 0 calcium carbonate-vitamin D3 [Calcium 500 + D] 500 mg(1,250mg) -400 unit tablet,chewable 1 tab PO BID RF: 0 cholecalciferol (vitamin D3) [Vitamin D3] 1,000 unit capsule 1,000 units PO QAM RF: 0 Discontinued Xarelto 20 mg tablet 20 mg PO QAM RF: 0 Discharge Orders: Discharge Order (Routine); Ordered 10/10/19 Ordered By: Richard Alicea Admission Data Admit Date/Time: 10/09/19 10:29 Attending Provider: Richard Alicea Admit Provider: Richard Alicea Primary Care Provider: Jesse Marion
[2019-10-10] MEDS ORDERED: POLYETHYLENE (MIRALAX) 17 GM PACK PO SCH (09:23)
[2019-10-11] MEDS ORDERED: bisacodyL 10 MG SUPP PR PRN (09:23)
== END 2019-10-10 11:53 | disposition home or self-care (01) | DRG 473 ==
LOC: ASU 05:45 → 3N 10:29